=== PATIENT | female | born 1950 | race Caucasian/White ===

== ENCOUNTER 2017-05-03 07:42 | Day surgery (SDC) | payer BC ==
[2017-05-03] VITALS (7 sets, daily range): BP systolic 110–146; BP diastolic 68–82; PULSE 62–77; TEMP 36.4–36.9; O2SAT 92–96; Ht 163.8 cm; Wt 68.0 kg
[~2017-05-03] VITALS: Ht 163.8 cm; Wt 68.0 kg
--- NOTE | 2017-05-03 06:36 | History and Physical ---
History & Physical Date of Service May 03, 2017. History & Physical 66-year-old female here for bronchoscopic evaluation of acute on oxygen dependences(qualifies for supplemental oxygen with ambulation sleep), chronic COPD/ACOS/bronchitis who is currently unresponsive interventions such as antibiotics, steroids and Mucinex. She is having some difficulty with her breathing. She is coughing and is getting up thick yellow "plugs". This will make her short of breath. She has been using mucinex. She was also trying to increase her fluid intake. She states that it did not work. She is having some wheezing or tightness in her chest. She continues to use her inhalers. She doesn't feel that i is doing much to help. She was recommended to consider oxygen at her last visit but she refused. She will feel much less short of breath with getting the yellow mucus plugs up. She has not had any chest heaviness or pleuritic chest pain. She has not had any fever or chills with this. She has not had any other concerns or problems. She has not had any cardiac symptoms. She has not had any chest pain. She has not had any angina. She has not had any palpitations. She has not had any fever or chills. She has not had any night sweats. Her weight has been stable to this point. She has not had any GI difficulties. She has not had any difficulties swallowing. She has not had any problems with indigestion or heartburn. She has not had any difficulties with her bowels. She has not had any difficulty with constipation or diarrhea. She has not had any difficulty voiding. She has not had any difficulty with swelling in her legs. She had a CT of her chest in February which did not show any evidence of pulmonary nodules. It showed evidence of mild emphysema. Smoking History: DAVID is a current every day smoker. She averages of 1-2pks pack(s) of cigarettes per day. She began smoking at age 23. Medical History: Patient has no personal history of cancer. Patient has history of COPD. Occupational History: DAVID has a history of occupational exposures to: - Asbestos: NO - Nickel: NO - Chromium: NO DAVID does not have a history of radon exposure. Her home has not been tested for radon. Active Problems 1. Sever COPD/ACOS (FEV1: 36%) 2. Current tobacco use 3. Dizziness 4. Dyspnea on exertion 5. H/O streptococcal pharyngitis 6. Hemoptysis 7. Muscle cramps 8. Otitis media 9. Pancytopenia 10. Parotiditis 11. Sleep apnea 12. TMJ (sprain of temporomandibular joint) Social History Current smoker Current tobacco use Social alcohol use Current Meds 1. Aspirin Low Dose 81 MG Oral Tablet Chewable; USE DIRECTED 2. Levothyroxine Sodium 112 MCG Oral Tablet; TAKE 1 TABLET DAILY DIRECTED; 3. Norvasc 10 MG Oral Tablet; TAKE 1 TABLET BY MOUTH IN THE MORNING 4. Simvastatin 20 MG Oral Tablet; TAKE 1 TABLET AT BEDTIME 5. Spiriva Respimat 2.5 MCG/ACT Inhalation Aerosol Solution; INHALE 2 PUFFS ONCE QD 6. Ventolin HFA 108 (90 Base) MCG/ACT Inhalation Aerosol Solution; INHALE 2 PUFFS Q4 PRN Allergies 1. No Known Drug Allergies Vital Signs O2 Saturation: 88, RA Recorded: 12Apr2017 09:59AM Weight: 152 lb 8 oz BMI Calculated: 26.18 BSA Calculated: 1.74 Blood Pressure: 116 / 82 Heart Rate: 76 Respiration: 20 O2 Saturation: 84, RA Temperature: 98.1 F General appearance: No acute distress, well appearing and well nourished. Eyes Conjunctiva and lids: No swelling, erythema or discharge. Pupils and irises: Equal, round and reactive to light. Ears, Nose, Mouth, and Throat External inspection of ears and nose: Normal. Oropharynx: Normal with no erythema, edema, exudate or lesions. Pulmonary Respiratory effort: No increased work of breathing or signs of respiratory distress. Auscultation of lungs: Clear to auscultation. Diminished breath sounds She has some coarse rhonchi bilaterally. Cardiovascular Palpation of heart: Normal PMI, no thrills. Auscultation of heart: Normal rate and rhythm, normal S1 and S2, without murmurs. Examination of extremities for edema and/or varicosities: Normal. Abdomen Abdomen: Non-tender, no masses. Liver and spleen: No hepatomegaly or splenomegaly. Neurologic Cranial nerves: Cranial nerves 2-12 intact. Reflexes: 2+ and symmetric. Sensation: No sensory loss. Psychiatric Orientation to person, place, and time: Normal. Mood and affect: Normal.
[2017-05-03] MEDS ORDERED: IBUP-1277 PO (09:28)
[2017-05-03] MEDS ORDERED: LEVO125T5 PO (09:28)
[2017-05-03] MEDS ORDERED: AMLO5CAP2 PO (09:28)
[2017-05-03] MEDS ORDERED: SIMV5TAB2 PO (09:28)
[2017-05-03] MEDS ORDERED: MULTTAB58 PO (09:28)
--- NOTE | 2017-05-03 10:04 | Pre Sedation Assessment ---
Pre Sedation Assessment General Date of Sedation: May 03, 2017. Vital Signs Past 12 Hours Date Time Temp Pulse Resp B/P (MAP) Pulse Ox O2 Delivery O2 Flow Rate FiO2 05/03/17 09:28 36.9 77 20 130/72 (91) 93 Room Air Review Cardiovascular: regular rate, rhythm, no edema, no gallop, no JVD, no murmur, normal peripheral pulses Lungs: + wheezing Pre-Sedation Airway Assessment Smoking Status: Current Every Day Smoker Hx of Sleep Apnea: Yes Hx of difficult intubation: No Short Thick Neck: No Thyro-mental Distance: > 3 Finger Breadths Oral Cavity: Capped Teeth Mallampati Classification: Class II ASA Classification: Class II NPO Status Date of Last Intake of Fluids: May 02, 2017 Time of Last Intake of Fluids: 2230 Date of Last Intake of Solids: May 02, 2017 Time of Last Intake of Solids: 1600 Procedure Planning Contraindications for Sedation: None Current Medications Reviewed: Yes Notes The planned sedation has been discussed with the patient. Informed Consent was obtained. I have identified the patient, determined the appropriateness of sedation and have assessed the patient immediately prior to the procedure. All medicine(s) and interventions are by my order.
--- NOTE | 2017-05-03 10:05 | History & Physical Bridge Note ---
H&P Re-Evaluation Bridge Note: I have examined the patient, reviewed the History & Physical and in the interval since the performance of the History & Physical I have noted the following changes of clinical significance: No changes noted
[2017-05-03] MEDS ORDERED: NURSING VERBAL MED ORDER ONE (10:30)
[2017-05-03] MEDS ORDERED: LIDOCAINE 4% INH SOLN 4 ML BTL NEB ONE (10:33)
[2017-05-03] MEDS ORDERED: LIDOCAINE VISCOUS 2% 100ML TOP ONE (10:47)
[2017-05-03] MEDS ORDERED: FENTANYL CITRATE INJ 50 MCG/1 ML 2 ML VIAL IV ONE (10:49)
[2017-05-03] MEDS ORDERED: MIDAZOLAM HCL 5 MG/ML 1 ML VIAL IV ONE (10:52)
[2017-05-03] MEDS ORDERED: LIDOCAINE HCL 2% LOCAL 50ML VIAL INSTIL ONE (10:59)
--- NOTE | 2017-05-03 11:06 | Post Sedation Assessment ---
Post Sedation Assessment General Date of Sedation May 03, 2017. Vital Signs: Vital Signs Past 12 Hours Date Time Temp Pulse Resp B/P (MAP) Pulse Ox O2 Delivery O2 Flow Rate FiO2 05/03/17 11:00 82 20 115/73 95 Oxymask 8 05/03/17 10:55 80 20 104/65 94 Oxymask 8 05/03/17 10:50 87 20 133/86 93 Oxymask 8 05/03/17 10:45 73 20 115/68 97 Oxymask 8 05/03/17 10:40 79 20 123/85 100 Oxymask 8 05/03/17 10:35 74 20 150/99 100 Oxymask 8 05/03/17 09:28 36.9 77 20 130/72 (91) 93 Room Air Post Procedure Recovery Score Activity: (2) Moves 4 extremities * Respiration: (2) Deep breath/cough Circulation: (2) +/-20% PreAnes Value Consciousness: (1) Arouseable (by name) Oxygen Saturation: (1) O2 needed for >90% Discharge Sedation Level of Care: Fast Track Phase II Post Sedation Plan On clinical assessment, the patient appears to have tolerated the sedation without complications. Patient is recovering as anticipated. Patient will continue to be monitored by nursing and may be discharged when sedation discharge criteria are met per below protocol. Upon Completions of procedure and additional 15 minutes continue every 5 minute vital signs and the P.A.R. score; then discharge to a Phase I or Fast Track to Phase II per the following guidelines: * Discharge Patient to appropriate Phase II area if PAR is 8 or greater or return to pre- procedure baseline. The post - procedure orders will be as directed. * If PAR score is less than 8 or not return to pre-procedure baseline then patient will follow Phase I monitoring till PAR is reached for Phase II. The Phase I may be done in procedure room or may call to secure a Phase I area. * If naloxone or flumazenil are used for reversal, hold in Phase I for an additional 60 -120 minutes before discharge to Phase II. Please call the Sedation Physician to re-evaluate and complete post-note for discharge to Phase II area. Do NOT discharge from procedure sedation or Phase 1 until post- sedation evaluation note is complete by procedure /sedation MD Sedation Discharge Instructions to be given to the patient at discharge to home.
--- NOTE | 2017-05-03 11:09 | Bronchoscopy Procedure Note ---
Bronchoscopy Procedure Note Procedure: Bronchoscopy, conscious sedation, bronchial lavage Consent: Obtained through the patient placed into the chart Pre-procedural diagnosis: COPD with bronchiectatic flare Post-procedural diagnosis: COPD with bronchiectatic flare Start time: 103 End time: 105 Total time: 20minutes Analgesia: 2% liquid lidocaine: Via nebulizer 4% gel lidocaine: Via right naris 2% liquid lidocaine: Via bronchoscopy Sedation: Versed IV: 4mg Fentanyl IV: 62.5g Procedure: The Olympus video bronchoscope was used for this procedure and passed down through the right naris Right naris/posterior naris/posterior oropharynx: Anatomically within normal limits: Diffuse erythema with some mild mucus plugging Glottis: Anatomically within normal limits Vocal cords: Proper abduction and abduction, anatomically within normal limits Subglottis/trachea/Cathi: Anatomically within normal limits Right bronchial tree: Right mainstem bronchus: Anatomically within normal limits Right upper lobe: Anatomically within normal limits, notable mucous plugs instructing the takeoff to the posterior subsegment Bronchus intermedius: Anatomically within normal limits Right middle lobe: Anatomically within normal limits Right lower lobe: Anatomically within normal limits, mucous plugging of the basal pyramids Left bronchial tree: Left mainstem bronchus: Anatomically within normal limits Left upper lobe: Anatomically within normal limits, anterior subsegment obstructed by mucus plugging Lingula: Anatomically within normal limits Left lower lobe: Anatomically within normal limits Bronchial alveolar lavage: Left upper lobe and right lower lobe EBL: None Complications: None Follow-up: [facility]
--- NOTE | 2017-05-03 11:11 | Discharge Instructions ---
Discharge Instructions Date of Service May 03, 2017. Admission Reason for Admission: Mucous Plugging, Shortness Of Breath Discharge Discharge Diagnosis / Problem: COPD with acute bronchiectatic flare Discharge Goals Goal(s): Improve function, Diagnostic testing Activity Recommendations Activity Limitations: resume your previous activity Driving or Machine Use: resume 1 day after discharge . Instructions / Follow-Up Instructions / Follow-Up Follow-up with the [facility] pulmonary [facility] Current Hospital Diet Patient's current hospital diet: Discharge Diet Recommended Diet: Regular Diet Procedures Procedures Performed: Bronchoscopy with conscious sedation and bronchial lavage of the left upper lobe and right lower lobe Pending Studies Studies pending at discharge: no Medical Emergencies . Who to Call and When: Medical Emergencies: If at any time you feel your situation is an emergency, please call 911 immediately. . Non-Emergent Contact Non-Emergency issues call your: Outside Plant Technician Call Non-Emergent contact if: you have a fever, temperature is above 101 . . "Provider Documentation" section prepared by Ben Hannah. .
[2017-05-03] MEDS ORDERED: DEXTROSE 5% 1000ML 1,000 ML IV SCH (12:00)
== END 2017-05-03 13:30 | disposition home or self-care (01) ==
LOC: C.ACU 07:42
PROVIDERS: ATTEND Internal Medicine Critical Care Medicine
DX: J44.1 Chronic obstructive pulmonary disease with (acute) exacerbation (principal); F17.210 Nicotine dependence, cigarettes, uncomplicated; G47.30 Sleep apnea, unspecified; Z79.82 Long term (current) use of aspirin; Z79.899 Other long term (current) drug therapy